=== PATIENT | male | born 1975 | race Two or more races ===

== ENCOUNTER 2018-10-10 19:40 | Emergency (ER) | payer SELFPAY ==
[~2018-10-10] VITALS: Ht 165.1 cm; Wt 149.7 kg
[2018-10-10 19:45] VITALS: BP 173/101
--- NOTE | 2018-10-10 20:18 | PHYS DOC ---
Adult General Chief Complaint Chief Complaint: TOE PROBLEM HPI HPI Patient is a 43 year old [male] who presents with [right great toe pain. Patient reports he had been working in his knees approximately 2 weeks ago with his foot, states his toe hyperextended at that time and he has continued to have pain. Reports no additional injuries since that time, but does report he continues to work on his knees, with his toes frequently hyperextended. States he has tried Aleve one time but it did not seem to help. He says he has been walking on the right side of his foot to try to manage the discomfort. Denies any other concerns at this time] (MARIAH LINDER APRN) Review of Systems Review of Systems Constitutional: Denies fever or chills [] Eyes: Denies change in visual acuity, redness, or eye pain [] HENT: Denies nasal congestion or sore throat [] Respiratory: Denies cough or shortness of breath [] Cardiovascular: No additional information not addressed in HPI [] GI: Denies abdominal pain, nausea, vomiting, bloody stools or diarrhea [] : Denies dysuria or hematuria [] Musculoskeletal: Denies back pain or joint pain other than pain to right great toe on flexion [] Integument: Denies rash or skin lesions [] Neurologic: Denies headache, focal weakness or sensory changes [] Endocrine: Denies polyuria or polydipsia [] All other systems were reviewed and found to be within normal limits, except as documented in this note. (MARIAH LINDER APRN) Physical Exam Physical Exam Constitutional: Well developed, well nourished, no acute distress, non-toxic appearance. [] HENT: Normocephalic, atraumatic, bilateral external ears normal, oropharynx moist, no oral exudates, nose normal. [] Eyes: PERRLA, EOMI, conjunctiva normal, no discharge. [] Neck: Normal range of motion, no tenderness, supple, no stridor. [] Cardiovascular:Heart rate regular rhythm, no murmur [] Lungs & Thorax: Bilateral breath sounds clear to auscultation [] Abdomen: Bowel sounds normal, soft, no tenderness, no masses, no pulsatile masses. [] Skin: Warm, dry, no erythema, no rash. [] Back: No tenderness, no CVA tenderness. [] Extremities: No tenderness, no cyanosis, no clubbing, ROM intact, no edema. Right great toe with small amount of swelling, and will tenderness noted at the proximal joint of the toe. Full range of motion. No bruising no erythema no erythema or tenderness noted elsewhere on the foot[] Neurologic: Alert and oriented X 3, normal motor function, normal sensory function, no focal deficits noted. [] Psychologic: Affect normal, judgement normal, mood normal. [] (MARIAH LINDER APRN) Current Patient Data Vital Signs Vital Signs Date Time Temp Pulse Resp B/P (MAP) Pulse Ox O2 Delivery O2 Flow Rate FiO2 10/10/18 19:45 98.1 88 16 173/101 (125) 93 Room Air 98.1 (AUGUSTINE HAMILTON DO) EKG EKG [] (MARIAH LINDER APRN) Radiology/Procedures Radiology/Procedures Per Dr Hamilton @ 2054 No acute process identified.[] (MARIAH LINDER APRN) Course & Med Decision Making Course & Med Decision Making Pertinent Labs and Imaging studies reviewed. (See chart for details) Discussed findings with patient, discussed no acute fracture noted. Advised to continue to take that for medications sure his blood sugar remains under control. Advised patient to try to avoid flexing foot causing her discomfort. Will use of a hard bottom shoe.] (MARIAH LINDER APRN) Dragon Disclaimer Dragon Disclaimer This electronic medical record was generated, in whole or in part, using a voice recognition dictation system. (MARIAH LINDER APRN) Splinting Splinting : Location: right foot Pre-Made Type: postop shoe Pre-Proc Neuro Vasc Exam: normal Post-Proc Neuro Vasc Exam: normal, unchanged from pre-exam (AUGUSTINE HAMILTON DO) Departure Departure Impression: Primary Impression: Hyperextension of great toe Disposition: 01 HOME, SELF-CARE Condition: GOOD Referrals: NO PCP (PCP) Patient Instructions: Foot Sprain Additional Instructions: As we discussed, where the hard soled shoe for the next 2 weeks. Continue to take Tylenol or ibuprofen for the package instructions. He can take ibuprofen 600 mg every 8 hours 650 mg of Tylenol every 6 hours. He can put ice on it as well. Follow-up with your primary care provider as needed. Make sure that sure report shoe is not pinching your toe because it has a steel toe. Attending Signature Attending Signature I have reviewed the PA/FUEL HANDLER's note and plan of care. I was available for consultation as needed during the patient's visit in the emergency department. I agree with the clinical impression, plan, and disposition. (AUGUSTINE HAMILTON DO) MARIAH LINDER APRN Oct 10, 2018 20:18 AUGUSTINE HAMILTON DO Oct 11, 2018 21:32
--- NOTE | 2018-10-10 21:15 | RAD ---
EXAM: Right foot 3 views. HISTORY: Right fifth digit pain after injury COMPARISON: None. FINDINGS: Three views of the right foot are obtained. No fractures are identified. Alignment is normal. 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 There is a moderate plantar calcaneal spur. IMPRESSION: 1. No fracture. Electronically signed by: Zaira Wells MD (10/10/2018 9:13 PM) [facility]
== END 2018-10-10 21:35 | disposition home or self-care (01) ==
LOC: ER 19:40
DX: S93.501A Unspecified sprain of right great toe, initial encounter (principal); X50.9XXA Other and unspecified overexertion or strenuous movements or postures, initial encounter; Y93.89 Activity, other specified; Y92.89 Other specified places as the place of occurrence of the external cause; Y99.8 Other external cause status
CPT/HCPCS: 73630; 99284